=== PATIENT | female | born 1990 ===

== ENCOUNTER 2021-03-21 09:39 | Inpatient (IN) | payer MEDICAID, OTHER ==
--- NOTE | 2021-03-21 09:51 | History and Physical Report ---
History of Present Illness Date of examination: 03/21/21 Date of admission: 03/21/21 09:39 Chief complaint: elective repeat section History of present illness: at 39.0 weeks, previous section presents for ERCS. No OB complaints PNC with [facility] OB problem list: Rubella Non-Immune, Previous second trimester loss Past History Past Surgical History: section Social history: no significant social history - Obstetrical History Expected Date of Delivery: 03/28/21 Actual Gestation: 39 Week(s) 0 Day(s) : 5 Para: 1 Hx # Term Pregnancies: 1 Spontaneous Abortions: 3 Number of Living Children: 1 Medications and Allergies Allergies Allergy/AdvReac Type Severity Reaction Status Date / Time No Known Allergies Allergy Verified 03/21/21 10:02 Home Medications Medication Instructions Recorded Confirmed Last Taken Type Ibuprofen [Motrin] 600 mg PO Q8H PRN #30 tablet 03/21/21 Unknown Rx oxyCODONE /ACETAMINOPHEN [Percocet 1 tab PO Q6HR PRN #20 tablet 03/21/21 Unknown Rx 5/325] Review of Systems All systems: negative (no OB complaints) - Physical Exam Breasts: Positive: deferred Cardiovascular: Regular rate Lungs: Positive: Clear to auscultation Abdomen: Positive: normal appearance, normal bowel sounds Genitourinary (Female): Positive: normal external genitalia, normal perenium Vagina: Positive: normal moisture Uterus: Positive: enlarged (FH 36cm) Anus/Rectum: Positive: normal perianal skin Extremities: Positive: normal Deep Tendon Reflex Grade: Normal +2 - Obstetrical FHR: category 1 Uterine Contraction Pattern: Irregular Results Result Diagrams: 03/21/21 10:05 All other labs normal. Assessment and Plan ERCS at term Plan: NPO, song lyricist to OR for delivery. Rabia Vazquez MD
[2021-03-21] MEDS ORDERED: METOCLOPRAMIDE 10 MG/2 ML INJ IV ONE (09:53)
[2021-03-21] MEDS ORDERED: FAMOTIDINE 20 MG/2 ML INJ IV ONE (09:53)
[2021-03-21] MEDS ORDERED: BICITRA ORAL LIQD 30ML PO ONE (09:53)
[2021-03-21] MEDS ORDERED: OXYTOCIN DRIP 30 UNITS/500 ML BAG IV SCH (10:00)
[2021-03-21] MEDS ORDERED: ceFAZolin/Water 2 GM/20 ML 2 GM/20 ML SYRINGE IV NR (10:00)
[2021-03-21] MEDS ORDERED: LACTATED RINGERS 1,000 ML IV SCH (10:00)
[2021-03-21 10:30] LABS: Basophils % (Auto) 0.6 % (0.0-1.8); Eosinophils # (Auto) 0.1 K/mm3 (0.0-0.4); Eosinophils % (Auto) 1.2 % (0.0-4.3); Hematocrit 40.4 % (30.3-42.9); Hemoglobin 13.7 gm/dl (10.1-14.3); Lymphocytes # (Auto) 1.7 K/mm3 (1.2-5.4); Mean Corpuscular HGB Conc 34 % (30-34); Mean Corpuscular Volume 92 fl (79-97); Monocytes # (Auto) 0.4 K/mm3 (0.0-0.8); Monocytes % (Auto) 5.5 % (0.0-7.3); Platelet Count 185 K/mm3 (140-440)
[2021-03-21] MEDS ORDERED: BUPIVACAINE/PF (0.5%) 5 MG/1 ML 30 ML VIAL INFILTRATI ONE (11:06)
[2021-03-21] MEDS ORDERED: SODIUM CHLORIDE 0.9% 100 ML ONE (11:07)
[2021-03-21] MEDS ORDERED: ONDANSETRON 4 MG/2 ML INJ ONE (11:07)
[2021-03-21] MEDS ORDERED: PHENYLEPHRINE 10 MG/1 ML INJ SDV ONE (11:07)
[2021-03-21] MEDS ORDERED: KETOROLAC 30 MG/1 ML INJ ONE (11:07)
[2021-03-21] MEDS ORDERED: ceFAZolin/STERILE WATER 2 GM/20 ML SYRINGE IV ONE (12:00)
[2021-03-21] MEDS ORDERED: SODIUM CHLORIDE 0.9% IRR 1,500 ML BOTTLE IR ONE (12:00)
[2021-03-21] MEDS ORDERED: WATER FOR IRRIG STERILE 1,500 ML BOTTLE IR ONE (12:00)
--- NOTE | 2021-03-21 12:18 | Anesthesia Consultation ---
Anesthesia Consult and Med Hx Date of service: 03/21/21 - Airway Anesthetic Teeth Evaluation: Good ROM Head & Neck: Adequate Mental/Hyoid Distance: Adequate Mallampati Class: Class II Intubation Access Assessment: Probably Good - Pulmonary Exam CTA: Yes - Cardiac Exam Cardiac Exam: RRR - Pre-Operative Health Status ASA Pre-Surgery Classification: ASA2 Proposed Anesthetic Plan: Spinal - Pulmonary Hx Asthma: No COPD: No Hx Pneumonia: No - Cardiovascular System Hx Hypertension: No - Central Nervous System Hx Seizures: No Hx Psychiatric Problems: No - Endocrine Hx Renal Disease: No Hx End Stage Renal Disease: No Hx Hypothyroidism: No Hx Hyperthyroidism: No - Hematic Hx Anemia: No Hx Sickle Cell Disease: No - Other Systems Hx Alcohol Use: No
--- NOTE | 2021-03-21 12:19 | Anesthesia Day of Surgery ---
Anesthesia Day of Surgery - Day of Surgery Patient Examined: Yes Patient H&P Reviewed: Yes Patient is NPO: Yes
--- NOTE | 2021-03-21 13:06 | Procedure Note ---
OB Delivery Note - Delivery Date of Delivery: 03/21/21 Surgeon: QUITA FRANKLIN Estimated blood loss: other (600ml) - Section Postop diagnosis: same section procedure: repeat low transverse Disposition: PACU Complications: none Narrative: Preop diagnosis: IUP at 39.0 weeks, previous section for elective repeat delivery Postop diagnosis: Same Procedure: Repeat low transverse section via Pfannenstiel incision Surgeon: Dr. Quita Franklin Anesthesia spinal Complications none EBL 600 ml IV fluids 1000mL Urine output 200mL, clear Drains Rosa to gravity Findings: Viable male with weight 4173gms and 8/9, normal uterus tubes and ovaries bilaterally Procedure: Patient was consented in taken to the operating room where she received excellent spinal anesthesia. She was then placed in the dorsal supine position with a leftward tilt. The abdomen was prepped and draped in a sterile fashion, and a timeout was verified. Adequate anesthesia was confirmed prior to the skin incision. A Pfannenstiel skin incision was made with a scalpel taken down to the underlying structures and the fascia was incised in the midline. The incision was extended laterally with curved Ellison scissors, the superior and inferior aspects of the fascial incisions were grasped with Yasmin clamps and the rectus muscles dissected sharply. The abdomen was entered bluntly in the midline carried down inferiorly with good visualization of the bladder. The vesicouterine peritoneum was tented with Guyanese forceps and incised in the midline with Metzenbaum scissors and the vesicouterine peritoneum taken down sharply. Bladder blade was inserted, the uterine incision was made sharply with a scalpel. The inferior and superior aspect of the uterine incisions were extended bluntly, the baby's head was delivered atraumatically. The remainder of the delivery was atraumatic, a loose nuchal cord was reduced after delivery. The cord was clamped and cut and baby handed to waiting NICU team. An intact placenta with three-vessel cord delivered manually. The uterus was then cleared of all clots and debris and the uterus exteriorized. The uterine incision was closed with 2 layers of 0 chromic with excellent hemostasis. The abdomen was then irrigated with warm normal saline and the uterus placed back into the abdomen atraumatically. A second look at the uterine incision assured hemostasis. The peritoneum was closed with 3-0 Vicryl, the rectus muscles approximated with 3-0 Vicryl, and the fascia closed with 0 Vicryl in the usual fashion. The subcuticular structures were closed with interrupted sutures of 3- 0 Vicryl and the skin closed with 4-0 Monocryl. A pressure dressing was applied. All sponge needle and instrument counts were correct x2. There were no complications. Mom and baby to the recovery area in stable condition. EBL 600 mL Rabia Franklin MD - Infant A at 1 minute: 8 at 5 minutes: 9 Gender: Male (4173gms)
--- NOTE | 2021-03-21 13:19 | Progress Note ---
Spinal Anesthesia Block - Spinal Anesthesia Block Start Time: 11:55 Stop Time: 11:59 Performed by:: YANIV MOREIRA Procedure: Sitting, sterile chlorahexadine 0.5% prep/drape, 1% lidocaine skin local, 25G spinal needle + introducer at L3-4, + CSF, - Heme, [1.9 ml 0.5% bupivacaine + 10 mcg dexmedetomidine] injected, drape removed, patient positioned supine with left uterine displacement, and spinal level verified to be adequate prior to surgery. Yaniv HECK
--- NOTE | 2021-03-21 13:20 | Progress Note ---
Regional Anesthesia Block - Regional Anesthesia Block Start Time: 13:10 Stop Time: 13:15 Performed By:: YANIV MOREIRA Procedure: U/S guided bilateral tap block performed for post-operative pain requested by Dr. Vazquez. H&P & labs reviewed. Procedure explained, questions answered, consent obtained. Patient in the supine position with ekg, blood pressure cuff and pulse ox on and working in PACU. Timeout performed immediately before start of procedure. Probe placed in the mid-axillary line and the external oblique, internal oblique, and transverse abdominus muscles identified. Skin was cleansed with chlorahexadine 0.5% and allowed to dry. A 4" 20 G Varela echogenic needle was advanced in plane until the tip was in the fascial plane between the internal oblique and the transverse abdominus. After negative aspiration 35 ml/side of [30 ml 0.5% Bupivacaine], [10 mg dexamethasone], and [40 ml sterile saline] was injected in 5 ml increments with negative aspiration in between. Patient tolerated procedure well. Yaniv HECK
--- NOTE | 2021-03-21 13:20 | Post Anesthesia Evaluation ---
- Post Anesthesia Evaluation Patient Participated: Yes Airway Patent: Yes Stable Respiratory Function: Yes Nausea/Vomiting: No Temp > 96.8F: Yes Pain Manageable: Yes Adequeate Hydration: Yes Anesthesia Complications: No Block Receding Appropriately: Yes
[2021-03-21] MEDS ORDERED: BUPIVACAINE /DEX-WATER 0.75% (2 ML) AMPULE INFILTRATI ONE (13:26)
[2021-03-21] MEDS ORDERED: ONDANSETRON 4 MG/2 ML INJ IV PRN (15:30)
[2021-03-21] MEDS ORDERED: WITCH HAZEL/ GLYCERIN PAD TP PRN (15:30)
[2021-03-21] MEDS ORDERED: IBUPROFEN 600 MG TAB PO PRN (15:30)
[2021-03-21] MEDS ORDERED: KETOROLAC 30 MG/1 ML INJ IV PRN ×2 (15:30)
[2021-03-21] MEDS ORDERED: MORPHINE 4 MG/1 ML INJ IV PRN (15:30)
[2021-03-21] MEDS ORDERED: LANOLIN/ZINC/DIMETHICONE (LANSINOH) 7 GM TP PRN (15:30)
[2021-03-21] MEDS ORDERED: MORPHINE 2 MG/1 ML INJ IV PRN (15:30)
[2021-03-21] MEDS ORDERED: NALOXONE 0.4 MG/1 ML INJ IV PRN (15:30)
--- NOTE | 2021-03-22 05:42 | Progress Note ---
Assessment and Plan A: /postop day 1 S/P repeat LTCS. P: Advance diet as tolerated. H/H today. Encouraged patient to ambulate. Subjective - Subjective Date of service: 03/22/21 Principal diagnosis: /postop day 1 S/P repeat C/S Interval history: Doing well. Passing gas. Tolerating PO liquids. Patient reports: pain well controlled, flatus, no nauseated : doing well Objective - Vital Signs Latest vital signs: Vital Signs Temp Pulse Resp BP BP Pulse Ox 03/22/21 01:58 98.9 F 68 18 104/50 97 03/21/21 21:54 98.4 F 63 16 95/55 98 03/21/21 15:28 98.4 F 57 L 18 96/56 100 03/21/21 15:13 68 96/56 100 03/21/21 14:00 62 18 86/52 03/21/21 13:45 58 L 18 89/50 03/21/21 13:30 51 L 18 90/51 03/21/21 13:15 65 18 86/41 03/21/21 13:10 60 18 89/49 03/21/21 13:05 97.8 F 61 18 91/57 03/21/21 11:44 75 97 03/21/21 11:43 98.4 F 03/21/21 11:41 81 107/71 03/21/21 11:39 80 99 03/21/21 11:34 85 96 03/21/21 11:29 73 97 03/21/21 11:24 83 98 03/21/21 11:19 71 98 03/21/21 11:14 69 98 03/21/21 11:12 98.1 F 72 16 104/59 03/21/21 11:09 77 98 03/21/21 11:04 72 99 03/21/21 10:59 74 99 03/21/21 10:54 75 99 03/21/21 10:49 74 97 03/21/21 10:44 86 99 03/21/21 10:39 66 99 03/21/21 10:34 63 99 03/21/21 10:29 80 97 03/21/21 10:24 81 104/59 98 Intake and Output 03/21/21 03/21/21 03/22/21 15:59 23:59 07:59 Intake Total 600 500 200 Output Total 400 5500 400 Balance 200 -5000 -200 Intake: IV 600 Oral 500 200 Output: Urine 400 5500 400 Indwelling Catheter 3000 Uretheral (Rosa) 200 2500 Void 400 Other: Total, Intake Amount 200 200 Total, Output Amount 1100 400 Weight 75.75 kg - Exam Cardiovascular: Present: Regular rate Lungs: Present: Clear to auscultation Abdomen: Present: normal appearance, soft, normal bowel sounds. Absent: distention, tenderness, guarding, rigidity Uterus: Present: normal, firm, fundal height below umbilicus. Absent: bogginess, tenderness Extremities: Present: normal. Absent: tenderness Incision: Present: dry, dressed
[2021-03-22] MEDS ORDERED: LACTATED RINGERS 250 ML IV ONE (05:46)
[2021-03-22] MEDS: oxyCODONE /ACETAMINOPHEN 5-325MG TAB PO PRN (06:29)
[2021-03-22 07:09] LABS: Hematocrit 34.3 % (30.3-42.9); Hemoglobin 11.5 gm/dl (10.1-14.3)
[2021-03-22] MEDS: IBUPROFEN 800 MG TAB PO PRN ×2 (12:53→23:35)
[2021-03-23] MEDS: oxyCODONE /ACETAMINOPHEN 5-325MG TAB PO PRN (05:32)
--- NOTE | 2021-03-23 11:11 | Progress Note ---
Assessment and Plan A: /postop day 2 S/P repeat low transverse section. P: Anticipate discharge home tomorrow AM if patient continues to do well. Subjective - Subjective Date of service: 03/23/21 Principal diagnosis: /postop day 2 S/P repeat C/S Interval history: Doing well. Passing gas. Has had BM. Voiding without difficulty. Tolerating regular diet. Patient reports: appetite normal, voiding normally, pain well controlled, flatus, bowel movement, ambulating normally, no dizzy ambulation, no nauseated [place]: doing well Objective - Vital Signs Latest vital signs: Vital Signs Temp Pulse Resp BP BP Pulse Ox 03/23/21 07:56 97.6 F 58 L 18 96/55 98 03/23/21 05:32 20 03/22/21 23:35 20 03/22/21 23:21 98.3 F 66 20 95/62 96 03/22/21 15:30 98.5 F 68 17 91/57 96 Intake and Output 03/22/21 03/23/21 03/23/21 23:59 07:59 15:59 Intake Total 480 Output Total 600 Balance -120 Intake: Oral 360 Intake, Free Water 120 Output: Urine 600 Void 600 Other: Total, Intake Amount 360 Total, Output Amount 600 # Voids Void 1 - Exam Cardiovascular: Present: Regular rate Lungs: Present: Clear to auscultation Abdomen: Present: normal appearance, soft, normal bowel sounds. Absent: distention, tenderness, guarding, rigidity Uterus: Present: normal, firm, fundal height below umbilicus. Absent: bogginess, tenderness Extremities: Present: normal. Absent: tenderness, edema Incision: Present: normal, dry, intact
[2021-03-24] MEDS: IBUPROFEN 800 MG TAB PO PRN ×2 (01:54→12:58)
--- NOTE | 2021-03-24 06:54 | Progress Note ---
Assessment and Plan A: /postop day 3 S/P repeat low transverse section. P: Discharge patient home today. Discussed with patient discharge instructions and warning signs. Care of incision and activity restrictions discussed with patient. Advised patient to avoid intercourse, housework, lifting and driving. Advised patient to continue taking her vitamin daily. Advised patient to follow up at [facility] in 1 week for incision check. Patient voiced understanding of all instructions. Subjective - Subjective Date of service: 03/24/21 Principal diagnosis: /postop day 3 S/P repeat C/S Interval history: Doing well. No complaints. Desires discharge home today. Patient reports: appetite normal, voiding normally, pain well controlled, flatus, bowel movement, ambulating normally, no dizzy ambulation, no nauseated [place]: doing well Objective - Vital Signs Latest vital signs: Vital Signs Temp Pulse Resp BP BP Pulse Ox 03/23/21 23:26 99.0 F 73 20 103/63 97 03/23/21 16:14 98.3 F 73 18 89/46 97 03/23/21 07:56 97.6 F 58 L 18 96/55 98 Intake and Output 03/23/21 03/23/21 03/24/21 15:59 23:59 07:59 Intake Total 240 Balance 240 Intake: Oral 240 Other: Total, Intake Amount 240 # Voids Void 1 1 1 - Exam Cardiovascular: Present: Regular rate Lungs: Present: Clear to auscultation Abdomen: Present: normal appearance, soft, normal bowel sounds. Absent: distention, tenderness, guarding, rigidity Uterus: Present: normal, firm, fundal height below umbilicus. Absent: bogginess, tenderness Extremities: Present: normal. Absent: tenderness, edema Incision: Present: normal, dry, intact
--- NOTE | 2021-03-24 07:00 | Discharge Summary ---
Providers - Providers Date of Admission: 03/21/21 09:39 Date of discharge: 03/24/21 Attending physician: QUITA FRANKLIN MD Primary care physician: QUITA FRANKLIN MD Hospitalization Reason for admission: section Delivery: Procedure: repeat low transverse Incision: normal, dry, intact Other procedures: none complications: none Discharge diagnosis: IUP at term delivered [place] baby: male Pertinent studies: Labs Hospital course: Stable hospital course Condition at discharge: Good Disposition: DC-01 TO HOME OR SELFCARE - Discharge Diagnoses (1) Term delivered Status: Acute Plan - Discharge Medications Prescriptions: Ibuprofen [Motrin] 600 mg PO Q8H PRN #30 tablet PRN Reason: Pain oxyCODONE /ACETAMINOPHEN [Percocet 5/325] 1 tab PO Q6HR PRN #20 tablet PRN Reason: Pain - Provider Discharge Summary Activity: routine, no sex for 6 weeks, no heavy lifting 4 weeks, no strenuous exercise Diet: routine Instructions: routine Additional instructions: Continue taking your vitamin at home. [facility] to [facility] for an incision check. Call your doctor immediately for: * Fever > 100.5 * Heavy vaginal bleeding ( >1 pad per hour) * Severe persistent headache * Shortness of breath * Reddened, hot, painful area to leg or breast * Drainage or odor from incision. * Keep incision clean and dry at all times and follow doctor's instructions regarding bathing/showering - Follow up plan Follow up: QUITA FRANKLIN MD [Primary Care Provider] - 7 Days
[2021-03-24 08:28] VITALS: BP 99/61
[2021-03-24] MEDS ORDERED: MEASLES, MUMPS & RUBELLA 12,500 UNIT/0.5 ML VACCINE SUB-Q ONE (12:35)
== END 2021-03-24 14:40 | disposition home or self-care (01) | DRG 788 ==
LOC: APU 09:39 → OB 15:10
PROVIDERS: ADMIT Obstetrics & Gynecology; ATTEND Obstetrics & Gynecology
PROC: 10D00Z1 Extraction of Products of Conception, Low, Open Approach (ICD-10-PCS; principal; 2021-03-21)
PROC: 3E0234Z Introduction of Serum, Toxoid and Vaccine into Muscle, Percutaneous Approach (ICD-10-PCS; 2021-03-24)
DX: O34.211 Maternal care for low transverse scar from previous cesarean delivery (principal); Z3A.39 39 weeks gestation of pregnancy; Z37.0 Single live birth; Z20.822 Contact with and (suspected) exposure to COVID-19; Z23 Encounter for immunization
CPT/HCPCS: 36415; 85014; 85018; 85025; 86765; 86850; 86900; 86901; 90707; G0378; J0690; J1885; J2370; J2405; J2765; J7120; U0003